=== PATIENT | female | born 1990 | race Caucasian/White ===

== ENCOUNTER 2018-09-21 10:21 | Outpatient (CLI) | payer OTHER | END 2018-09-21 16:06 | disposition home or self-care (01) | LOC: SONOGRAMA 10:21 | DX: Z34.01 Encounter for supervision of normal first pregnancy, first trimester (principal) ==

== ENCOUNTER 2018-09-22 05:53 | Day surgery (SDC) | payer OTHER | END 2018-09-22 12:40 | disposition home or self-care (01) | LOC: CIR.AMB 05:53 | DX: O02.1 Missed abortion (principal); Z3A.12 12 weeks gestation of pregnancy ==

== ENCOUNTER 2019-05-20 03:00 | Emergency (ER) | payer OTHER ==
[~2019-05-20] VITALS: Ht 157.5 cm; Wt 54.4 kg
== END 2019-05-20 06:41 | disposition home or self-care (01) ==
LOC: ER 03:00
DX: R10.2 Pelvic and perineal pain (principal)

== ENCOUNTER 2019-05-22 09:47 | Outpatient (CLI) | payer OTHER | END 2019-05-22 09:54 | disposition home or self-care (01) | LOC: LAB 09:47 | DX: Z34.00 Encounter for supervision of normal first pregnancy, unspecified trimester (principal) ==

== ENCOUNTER → 2019-05-24 09:28 | Outpatient (CLI) | payer OTHER | END | disposition home or self-care (01) | LOC: LAB 09:28 | DX: Z34.00 Encounter for supervision of normal first pregnancy, unspecified trimester (principal) ==

== ENCOUNTER 2019-07-13 11:28 | Outpatient (CLI) | payer OTHER | END 2019-07-13 15:00 | disposition home or self-care (01) | LOC: LAB 11:28 | DX: Z36.0 Encounter for antenatal screening for chromosomal anomalies (principal) ==

== ENCOUNTER → 2019-07-13 | Outpatient (CLI) | payer OTHER | END | disposition home or self-care (01) | LOC: PRENATAL 08:30 | DX: O99.89 Other specified diseases and conditions complicating pregnancy, childbirth and the puerperium (principal); O26.891 Other specified pregnancy related conditions, first trimester ==

== ENCOUNTER → 2019-09-03 | Outpatient (CLI) | payer OTHER | END | disposition home or self-care (01) | LOC: PRENATAL 08:00 | DX: O35.3XX0 Maternal care for (suspected) damage to fetus from viral disease in mother, not applicable or unspecified (principal) ==

== ENCOUNTER 2019-12-25 13:45 | Inpatient (IN) | payer OTHER ==
[~2019-12-25] VITALS: Ht 157.5 cm; Wt 69.4 kg
[2020-01-23] MEDS ORDERED: PRENATAL CAPLE1 EAC1 PO (03:10)
[2020-01-30] MEDS ORDERED: AMOX1TAB5 PO ×2 (12:24→12:27)
== END 2020-01-30 19:34 | disposition home or self-care (01) | DRG 806 ==
LOC: OB/GYN 01-22 13:45 → LDR 01-23 02:45 → OB/GYN 01-23 02:45
PROVIDERS: ADMIT Specialist
PROC: 10E0XZZ Delivery of Products of Conception, External Approach (ICD-10-PCS; principal; 2020-01-23)
PROC: 0W8NXZZ Division of Female Perineum, External Approach (ICD-10-PCS; 2020-01-23)
PROC: 3E033VJ Introduction of Other Hormone into Peripheral Vein, Percutaneous Approach (ICD-10-PCS; 2020-01-23)
PROC: 4A1HXCZ Monitoring of Products of Conception, Cardiac Rate, External Approach (ICD-10-PCS; 2020-01-23)
PROC: BT4JZZZ Ultrasonography of Kidneys and Bladder (ICD-10-PCS; 2020-01-25)
PROC: BW40ZZZ Ultrasonography of Abdomen (ICD-10-PCS; 2020-01-25)
DX: O98.82 Other maternal infectious and parasitic diseases complicating childbirth (principal); O86.13 Vaginitis following delivery; Z37.0 Single live birth; O86.4 Pyrexia of unknown origin following delivery; O99.63 Diseases of the digestive system complicating the puerperium; K80.20 Calculus of gallbladder without cholecystitis without obstruction; B96.1 Klebsiella pneumoniae [K. pneumoniae] as the cause of diseases classified elsewhere; Z3A.39 39 weeks gestation of pregnancy

== ENCOUNTER 2022-09-03 08:45 | Outpatient (CLI) | payer OTHER ==
[~2022-09-03 08:45] MED LIST: AMOX1TAB5 PO; PRENATAL CAPLE1 EAC1 PO
== END 2022-09-03 11:25 | disposition home or self-care (01) ==
LOC: PRENATAL 08:45
PROVIDERS: ATTEND Obstetrics & Gynecology Maternal & Fetal Medicine
DX: O36.80X0 Pregnancy with inconclusive fetal viability, not applicable or unspecified (principal); O34.80 Maternal care for other abnormalities of pelvic organs, unspecified trimester; Z3A.01 Less than 8 weeks gestation of pregnancy

== ENCOUNTER 2022-10-07 08:08 | Outpatient (CLI) | payer OTHER | END 2022-10-07 09:30 | disposition home or self-care (01) | LOC: PRENATAL 08:08 | PROVIDERS: ATTEND Obstetrics & Gynecology Maternal & Fetal Medicine | DX: O36.80X0 Pregnancy with inconclusive fetal viability, not applicable or unspecified (principal); Z36.0 Encounter for antenatal screening for chromosomal anomalies; O99.280 Endocrine, nutritional and metabolic diseases complicating pregnancy, unspecified trimester; Z3A.14 14 weeks gestation of pregnancy ==

== ENCOUNTER 2022-11-24 09:05 | Outpatient (CLI) | payer OTHER | END 2022-11-24 11:23 | disposition home or self-care (01) | LOC: PRENATAL 09:05 | PROVIDERS: ATTEND Obstetrics & Gynecology Maternal & Fetal Medicine | DX: O35.9XX0 Maternal care for (suspected) fetal abnormality and damage, unspecified, not applicable or unspecified (principal); O35.3XX0 Maternal care for (suspected) damage to fetus from viral disease in mother, not applicable or unspecified; Z3A.21 21 weeks gestation of pregnancy ==

== ENCOUNTER 2023-01-12 08:04 | Outpatient (CLI) | payer OTHER | END 2023-01-12 09:13 | disposition home or self-care (01) | LOC: PRENATAL 08:04 | PROVIDERS: ATTEND Obstetrics & Gynecology Maternal & Fetal Medicine | DX: O35.9XX0 Maternal care for (suspected) fetal abnormality and damage, unspecified, not applicable or unspecified (principal); O34.219 Maternal care for unspecified type scar from previous cesarean delivery; Z3A.22 22 weeks gestation of pregnancy ==

== ENCOUNTER 2023-02-28 08:24 | Outpatient (CLI) | payer OTHER | END 2023-02-28 10:00 | disposition home or self-care (01) | LOC: PRENATAL 08:24 | PROVIDERS: ATTEND Obstetrics & Gynecology Maternal & Fetal Medicine | DX: O26.849 Uterine size-date discrepancy, unspecified trimester (principal); O35.9XX0 Maternal care for (suspected) fetal abnormality and damage, unspecified, not applicable or unspecified; O99.280 Endocrine, nutritional and metabolic diseases complicating pregnancy, unspecified trimester; Z3A.34 34 weeks gestation of pregnancy ==

== ENCOUNTER 2023-03-07 09:31 | Outpatient (CLI) | payer OTHER | END 2023-03-07 10:24 | disposition home or self-care (01) | LOC: NST 09:31 | PROVIDERS: ATTEND Specialist | DX: Z34.83 Encounter for supervision of other normal pregnancy, third trimester (principal) ==

== ENCOUNTER 2023-03-14 08:35 | Outpatient (CLI) | payer OTHER | END 2023-03-14 09:12 | disposition home or self-care (01) | LOC: NST 08:35 | PROVIDERS: ATTEND Specialist | DX: Z34.83 Encounter for supervision of other normal pregnancy, third trimester (principal) ==

== ENCOUNTER 2023-03-21 08:17 | Outpatient (CLI) | payer OTHER | END 2023-03-21 09:25 | disposition home or self-care (01) | LOC: PRENATAL 08:17 | PROVIDERS: ATTEND Obstetrics & Gynecology Maternal & Fetal Medicine | DX: O26.849 Uterine size-date discrepancy, unspecified trimester (principal); O35.9XX0 Maternal care for (suspected) fetal abnormality and damage, unspecified, not applicable or unspecified; O99.280 Endocrine, nutritional and metabolic diseases complicating pregnancy, unspecified trimester; O36.5990 Maternal care for other known or suspected poor fetal growth, unspecified trimester, not applicable or unspecified; Z3A.37 37 weeks gestation of pregnancy ==

== ENCOUNTER 2023-03-24 06:04 | Inpatient (IN) | payer OTHER ==
[~2023-03-24] VITALS: Ht 157.5 cm; Wt 66.7 kg
[2023-03-24] MEDS ORDERED: IRON325 MG PO (07:52)
[2023-03-24] MEDS ORDERED: PROBIOTIC250 MG PO (07:53)
== END 2023-03-26 13:37 | disposition home or self-care (01) | DRG 807 ==
LOC: LDR 06:04 → OB/GYN 06:04
PROVIDERS: ADMIT Specialist; ATTEND Specialist
PROC: 10E0XZZ Delivery of Products of Conception, External Approach (ICD-10-PCS; principal; 2023-03-24)
PROC: 3E033VJ Introduction of Other Hormone into Peripheral Vein, Percutaneous Approach (ICD-10-PCS; 2023-03-24)
PROC: 3E0P7VZ Introduction of Hormone into Female Reproductive, Via Natural or Artificial Opening (ICD-10-PCS; 2023-03-24)
PROC: 4A1HXCZ Monitoring of Products of Conception, Cardiac Rate, External Approach (ICD-10-PCS; 2023-03-24)
DX: O36.5930 Maternal care for other known or suspected poor fetal growth, third trimester, not applicable or unspecified (principal); Z37.0 Single live birth; Z3A.38 38 weeks gestation of pregnancy; Z20.822 Contact with and (suspected) exposure to COVID-19